=== PATIENT | female | born 1955 | race Caucasian/White ===

== ENCOUNTER 2017-03-12 07:03 | Emergency (ER) | payer BC, OTHER ==
[2017-03-12] MEDS ORDERED: NORMAL SALINE 1000 ML 1,000 ML IV ONE ×2 (07:57→11:28)
[2017-03-12] MEDS ORDERED: ONDANSETRON HCL INJ/PF 4 MG/2 ML SDV IV ONE (07:57)
[2017-03-12] MEDS ORDERED: MORPHINE SULFATE 10 MG/ML INJ IV ONE ×2 (07:57→11:29)
--- NOTE | 2017-03-12 09:31 | RADIOLOGY REPORT (SQ) ---
EXAM DESCRIPTION: CT ABD/PELVIS NO ORAL OR IV COMPLETED DATE/TIME: 03/12/2017 9:15 am REASON FOR STUDY: recent iliostomy 3 weeks ago, flank pain, rlq pain COMPARISON: None. TECHNIQUE: CT scan of the abdomen and pelvis performed without intravenous or oral contrast. Images reviewed with lung, soft tissue, and bone windows. Reconstructed coronal and sagittal MPR images revi ewed. All images stored on PACS. All CT scanners at this facility use dose modulation, iterative reconstruction, and/or weight based d osing when appropriate to reduce radiation dose to as low as reasonably achievable (ALARA). [facility]: Dose Right [facility]: CareDose [facility]: Dose Right [facility]: Teradose 4D [facility]: Smart Contatta RADIATION DOSE: Up-to-date CT equipment and radiation dose reduction techniques were employed. CTDIv ol: 4.9 mGy. DLP: 245 mGy-cm.mGy. LIMITATIONS: None. FINDINGS: LOWER CHEST: No significant findings. No nodules or infiltrates. Partially visualized lef t breast implant. NON-CONTRASTED LIVER, SPLEEN, ADRENALS: Evaluation limited by lack of IV contrast. No identified sign ificant masses. PANCREAS: No masses. No peripancreatic inflammatory changes. GALLBLADDER: Surgically absent. RIGHT KIDNEY AND URETER: No suspicious masses. Assessment limited by lack of IV contrast. Double-J ureteral stents noted within the collecting system. Significant persistent hydronephrosis. LEFT KIDNEY AND URETER: No suspicious masses. Assessment limited by lack of IV contrast. No signifi cant calcifications. Significant left-sided hydronephrosis. AORTA AND RETROPERITONEUM: No aneurysm. No retroperitoneal masses or adenopathy. BOWEL AND PERITONEAL CAVITY: Right lower quadrant ostomy noted. Surgical clips noted within the mese nteries. No adenopathy. No mass lesions. No intra-abdominal free air. No fluid collections or asc ites. APPENDIX: Not visualized. PELVIS, BLADDER, AND ABDOMINAL WALL:Double-J stent noted within the bladder from the right. No pelvi c mass lesions. No pelvic adenopathy. Postsurgical changes from midline incision noted. No abdomin al mass lesions. No hernia. BONES: No significant findings. OTHER: No other significant finding. IMPRESSION: 1. Significant bilateral hydronephrosis. Right double-J ureteral stent in place. The stents identified on the left. No renal calculi identified. 2. Right lower quadrant ostomy. No evidence of bowel obstruction. No intra-abdominal free air. No intra bowel fluid collections or ascites. TECHNICAL DOCUMENTATION: JOB ID: [id number] Quality ID # [id number]: Final reports with documentation of one or more dose reduction techniques (e.g., Au tomated exposure control, adjustment of the mA and/or kV according to patient size, use of iterative reconstruction technique) 2010 [employer]- All Rights Reserved
--- NOTE | 2017-03-12 09:36 | ER Document Report ---
ED GI/ - General Chief Complaint: Pelvic Pain Stated Complaint: SIDE PAIN Time Seen by Provider: 03/12/17 07:19 Mode of Arrival: Ambulatory Information source: Patient Notes: Patient is a 61-year-old female with history of breast cancer who presents to the ER today for right flank pain radiating around to the right lower abdomen. Patient had an ileostomy placed 3 weeks ago due to mass in her small intestine. Patient states that they had to bypass the mass, cannot remove it because it was "too intertwined." She is not on chemo or radiation at this time. She denies any history of kidney stones. She admits to some nausea but no vomiting with this pain that began last night and has been constant since. 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 She denies any dysuria, hematuria, fever , chills, abnormal vaginal discharge. TRAVEL OUTSIDE OF THE [place] IN LAST 30 DAYS: No - Related Data Allergies/Adverse Reactions: acetaminophen [From Percocet] Allergy (Verified 03/12/17 07:57) oxycodone [From Percocet] Allergy (Verified 03/12/17 07:57) promethazine [From Phenergan] Allergy (Verified 03/12/17 07:57) Past Medical History - General Information source: Patient - Social History Smoking Status: Unknown if Ever Smoked Chew tobacco use (# tins/day): No Frequency of alcohol use: None Drug Abuse: None Family History: Reviewed & Not Pertinent Renal/ Medical History: Denies: Hx Peritoneal Dialysis Past Surgical History: Reports: Hx Abdominal Surgery - ostomy, Hx Breast Surgery , Hx Mastectomy Review of Systems - Review of Systems Constitutional: No symptoms reported EENT: No symptoms reported Cardiovascular: No symptoms reported Respiratory: No symptoms reported Gastrointestinal: See HPI Genitourinary: See HPI Female Genitourinary: No symptoms reported Musculoskeletal: No symptoms reported Skin: No symptoms reported Hematologic/Lymphatic: No symptoms reported Neurological/Psychological: No symptoms reported Physical Exam - Vital signs Vitals: Temp Pulse Resp BP Pulse Ox 97.6 F 86 14 144/84 H 99 03/12/17 07:05 03/12/17 07:05 03/12/17 07:05 03/12/17 07:05 03/12/17 07:05 - Notes Notes: PHYSICAL EXAMINATION: GENERAL: Obviously in pain, and position hunched over on bed, in mild acute distress. HEAD: Atraumatic, normocephalic. EYES: Pupils equal round and reactive to light, extraocular movements intact, sclera anicteric, conjunctiva are normal. NECK: Normal range of motion, supple without lymphadenopathy LUNGS: CTAB and equal. No wheezes rales or rhonchi. HEART: Regular rate and rhythm without murmurs ABDOMEN: iliostomy in place, looks well, stool in bag, no bleeding, stoma looks well, Soft, RLQ, right sided, tenderness. No guarding, no rebound BACK: no vertebral tenderness, normal ROM GI/: right CVA tenderness EXTREMITIES: Normal range of motion, no pitting edema. No cyanosis. NEUROLOGICAL: Cranial nerves grossly intact. Normal sensory/motor exams. PSYCH: Normal mood, normal affect. SKIN: Warm, Dry, normal turgor, no rashes or lesions noted Course - Re-evaluation Re-evalutation: 03/12/17 11:[address] Smith, oncologist [facility] who states her last ultrasound of kidneys 2 weeks ago reports only moderate left hydronephrosis and her creatinine was 1.75. Today her creatinine is 3.05, and she has significant bilateral hydronephrosis. I have now placed a call for her urologist and is awaiting callback. CT reports no acute pathology. 03/12/17 12:34 Oncologist, Dr. Smith fellow patient to her service at this time for acute renal failure with a consult to urology, the attending, accepting physician is Dr. Jazmyn Kurtz and patient will go to ED to ED. 03/12/17 13:05 pt stable for transfer, no complaints. transport here. - Vital Signs Vital signs: Temp Pulse Resp BP Pulse Ox 98.6 F 79 16 150/85 H 99 03/12/17 12:48 03/12/17 12:48 03/12/17 12:48 03/12/17 12:48 03/12/17 12:48 - Laboratory Result Diagrams: 03/12/17 09:32 03/12/17 09:32 Laboratory results interpreted by me: 03/12/17 03/12/17 09:32 09:32 RBC 3.12 L Hgb 9.6 L Hct 27.7 L Plt Count 488 H Chloride 108 H Carbon Dioxide 17 L BUN 35 H Creatinine 3.05 H Est GFR ( Amer) 19 L Est GFR (Non-Af Amer) 16 L ALT 70 H Alkaline Phosphatase 254 H Albumin 3.3 L Discharge - Discharge Clinical Impression: Acute renal failure Qualifiers: Acute renal failure type: unspecified Qualified Code(s): N17.9 - Acute kidney failure, unspecified Hydronephrosis Qualifiers: Hydronephrosis type: with other ureteral stricture Qualified Code(s): N13.1 - Hydronephrosis with ureteral stricture, not elsewhere classified Condition: Stable Disposition: [facility]
[2017-03-12 09:41] LABS: ABSOLUTE BASOPHILS # (AUTO) 0.1 10^3/uL (0.0-0.2); ABSOLUTE EOSINOPHILS # (AUTO) 0.1 10^3/uL (0.0-0.6); ABSOLUTE LYMPHOCYTES (AUTO) 1.4 10^3/uL (0.5-4.7); ABSOLUTE MONOCYTES (AUTO) 0.7 10^3/uL (0.1-1.4); ABSOLUTE NEUT (AUTO) 5.6 10^3/uL (1.7-8.2); BASOPHILS % (AUTO) 0.7 % (0-2); HEMATOCRIT 27.7 % (36.0-47.0); HEMOGLOBIN 9.6 g/dL (12.0-15.5); HGB HCT DIFFERENCE 1.1; LYMPHOCYTES % (AUTO) 17.8 % (13-45); MEAN CORPUSCULAR HEMOGLOBIN 30.9 pg (27.0-33.4); MEAN CORPUSCULAR HGB CONC 34.8 g/dL (32.0-36.0); MEAN CORPUSCULAR VOLUME 89 fl (80-97); MONOCYTES % (AUTO) 8.4 % (3-13); RED BLOOD COUNT 3.12 10^6/uL (3.72-5.28); RED CELL DISTRIBUTION WIDTH 12.5 % (11.5-14.0); SEGMENTED NEUTROPHILS % (AUTO) 72.1 % (42-78); WHITE BLOOD COUNT 7.8 10^3/uL (4.0-10.5)
[2017-03-12 10:05] LABS: ALANINE AMINOTRANSFERASE 70 U/L (9-52); ALBUMIN 3.3 g/dL (3.5-5.0); ALKALINE PHOSPHATASE 254 U/L (38-126); ANION GAP 13 (5-19); ASPARTATE AMINO TRANSFERASE 33 U/L (14-36); BILIRUBIN,DIRECT 0.4 mg/dL (0.0-0.4); BILIRUBIN,TOTAL 0.7 mg/dL (0.2-1.3); BLOOD UREA NITROGEN 35 mg/dL (7-20); CALCIUM 9.7 mg/dL (8.4-10.2); CARBON DIOXIDE 17 mmol/L (22-30); CHLORIDE 108 mmol/L (98-107); CREATININE RESULT 3.05 mg/dL (0.52-1.25); GLUCOSE 99 mg/dL (75-110); LIPASE 158.8 U/L (23-300); POTASSIUM 4.1 mmol/L (3.6-5.0); SODIUM 138.2 mmol/L (137-145); TOTAL PROTEIN 6.4 g/dL (6.3-8.2)
[2017-03-12 12:49] VITALS: BP 150/85
== END 2017-03-12 13:10 | disposition short-term general hospital (02) ==
LOC: ER 07:03
DX: N17.9 Acute kidney failure, unspecified (principal); N13.1 Hydronephrosis with ureteral stricture, not elsewhere classified; R19.09 Other intra-abdominal and pelvic swelling, mass and lump; Z93.2 Ileostomy status; R11.0 Nausea; Z92.3 Personal history of irradiation; Z88.5 Allergy status to narcotic agent; Z88.6 Allergy status to analgesic agent; Z88.8 Allergy status to other drugs, medicaments and biological substances
CPT/HCPCS: 96376; 99285; 96361; 51701; 96374; 96375; 36415; 83690; 85025; 80053; 74176; J2270; J2405; J7030

== ENCOUNTER 2017-04-18 18:27 | Emergency (ER) | payer BC ==
[2017-04-18] MEDS ORDERED: FAMOTIDINE INJ/PF 20 MG/2 ML SDV IV ONE (18:31)
[2017-04-18] MEDS ORDERED: METOCLOPRAMIDE HCL INJ/PF 10 MG/2 ML SDV IV ONE (18:31)
[2017-04-18] MEDS ORDERED: NORMAL SALINE 1000 ML 1,000 ML IV PRN ×2 (18:31→19:21)
--- NOTE | 2017-04-18 18:45 | ER Document Report ---
ED GI/ - General Chief Complaint: Nausea Stated Complaint: NAUSEA,VOMITING Time Seen by Provider: 04/18/17 18:31 Mode of Arrival: Stretcher Information source: Patient, Emergency Med Personnel TRAVEL OUTSIDE OF THE [place] IN LAST 30 DAYS: No - HPI Patient complains to provider of: Vomiting Onset: Other - 3 days Timing/Duration: Persistent Quality of pain: Achy Severity at maximum: Mild Severity in ED: Mild Associated symptoms: Nausea, Vomiting Exacerbated by: Food Relieved by: Denies Similar symptoms previously: Yes Recently seen / treated by doctor: Yes Notes: 04/18/17 23:05 Patient is a 61-year-old female with a history of metastatic breast cancer, who presents to the emergency room today complaining of nausea and vomiting with decreased p.o. intake over the past 3 days, she was recently seen at a tertiary care center and had nephrostomy tubes placed, also has colostomy, she recently started a new course of chemotherapy which she reports is likely the cause of her symptoms today, she reports some crampy lower abdominal pain, no fever, she does have generalized weakness - Related Data Allergies/Adverse Reactions: acetaminophen [From Percocet] Allergy (Verified 04/18/17 19:00) oxycodone [From Percocet] Allergy (Verified 04/18/17 19:00) promethazine [From Phenergan] Allergy (Verified 04/18/17 19:00) Home Medications: Current Home Medications Capecitabine [Capecitabine] 1,500 mg PO BID 04/18/17 [History] Citalopram Hydrobromide [Citalopram HBr] 40 mg PO DAILY 04/18/17 [History] Fentanyl [Fentanyl] 25 mcg TD Q72HP 04/18/17 [History] Lorazepam [Lorazepam] 0.5 mg PO Q4H PRN 04/18/17 [History] Ondansetron [Zuplenz] 8 mg PO Q8H 04/18/17 [History] Oxycodone HCl [Oxycodone HCl] 10 mg PO Q4H 04/18/17 [History] Past Medical History - General Information source: Patient - Social History Smoking Status: Unknown if Ever Smoked Family History: Reviewed & Not Pertinent Renal/ Medical History: Denies: Hx Peritoneal Dialysis Past Surgical History: Reports: Hx Abdominal Surgery - ostomy, Hx Breast Surgery , Hx Mastectomy Review of Systems - Review of Systems Constitutional: Malaise, Weakness EENT: No symptoms reported Cardiovascular: No symptoms reported Respiratory: No symptoms reported Gastrointestinal: See HPI Genitourinary: No symptoms reported Female Genitourinary: No symptoms reported Musculoskeletal: No symptoms reported Skin: No symptoms reported Hematologic/Lymphatic: No symptoms reported Neurological/Psychological: No symptoms reported -: Yes All other systems reviewed and negative Physical Exam - Vital signs Vitals: Temp Pulse Resp BP Pulse Ox 99 F 127 H 18 136/72 H 99 04/18/17 18:30 04/18/17 18:30 04/18/17 18:30 04/18/17 18:30 04/18/17 18:30 Interpretation: Tachycardic - General General appearance: Alert In distress: None - Appears uncomfortable, actively vomiting - HEENT Head: Normocephalic, Atraumatic Eyes: Normal Conjunctiva: Normal Extraocular movements intact: Yes Eyelashes: Normal Pupils: PERRL - Respiratory Respiratory status: No respiratory distress Chest status: Nontender Breath sounds: Normal Chest palpation: Normal - Cardiovascular Rhythm: Regular, Tachycardia - Abdominal Inspection: Other - Colostomy in place Distension: No distension Bowel sounds: Normal Tenderness: Tender - Mild lower abdominal tenderness Organomegaly: No organomegaly - Back Back: Normal - Extremities General upper extremity: Normal inspection General lower extremity: Normal inspection - Neurological Neuro grossly intact: Yes Cognition: Normal Orientation: AAOx4 Neal Coma Scale Eye Opening: Spontaneous [place] Coma Scale Verbal: Oriented [place] Coma Scale Motor: Obeys Commands [place] Coma Scale Total: 15 - Psychological Associated symptoms: Normal affect, Normal mood - Skin Skin Temperature: Warm Skin Moisture: Dry Skin Color: Normal Course - Re-evaluation Re-evalutation: 04/18/17 23:07 Patient resting comfortably, reports feeling much better, was able to tolerate crackers and water, vital signs are significantly improved, she is noted to have urinalysis consistent with a urinary tract infection, was started on antibiotics for this, provided with several antinausea medications by prescription, advised to follow-up with her primary care provider and her oncologist in the next 1-2 days or return if symptoms worsen, patient acknowledges understanding and agreement with this plan - Vital Signs Vital signs: Temp Pulse Resp BP Pulse Ox 99 F 127 H 19 87/63 L 99 04/18/17 18:30 04/18/17 18:30 04/18/17 22:32 04/18/17 22:30 04/18/17 22:32 - Laboratory Result Diagrams: 04/18/17 18:35 04/18/17 18:35 Laboratory results interpreted by me: 04/18/17 04/18/17 04/18/17 18:35 18:35 20:37 RBC 3.52 L Hgb 11.0 L Hct 31.6 L RDW 14.1 H Chloride 97 L BUN 36 H Creatinine 1.45 H Est GFR ( Amer) 45 L Est GFR (Non-Af Amer) 37 L Glucose 118 H Alkaline Phosphatase 127 H Urine Protein 100 H Urine Blood LARGE H Ur Leukocyte Esterase LARGE H Discharge - Discharge Clinical Impression: Nausea & vomiting Qualifiers: Vomiting type: unspecified Vomiting Intractability: non-intractable Qualified Code(s): R11.2 - Nausea with vomiting, unspecified Urinary tract infection Qualifiers: Urinary tract infection type: site unspecified Hematuria presence: with hematuria Qualified Code(s): N39.0 - Urinary tract infection, site not specified ; R31.9 - Hematuria, unspecified Condition: Stable Disposition: HOME, SELF-CARE Instructions: Antinausea Medication ([facility]), Intravenous (IV) Fluids ([facility]), Vomiting ([facility]), Urinary Tract Infection ([facility]) Additional Instructions: Follow up with your primary care provider in one to 2 days. Return to the emergency room immediately if symptoms worsen or any additional concerns. Prescriptions: Cephalexin Monohydrate [Keflex 500 mg Capsule] 500 mg PO BID #20 capsule Metoclopramide HCl [Reglan 10 mg Tablet] 1 - 2 tab PO ASDIR PRN #25 tablet PRN Reason: Prochlorperazine Maleate [Compazine 10 mg Tablet] 10 mg PO ASDIR PRN #30 tablet PRN Reason: Prochlorperazine Maleate [Compazine 25 Mg Supp.Rect] 25 mg TN TID #30 supp.rect Referrals: ARCADIO BHAKTA MD [Primary Care Provider] - Follow up as needed
[2017-04-18 19:04] LABS: ABSOLUTE LYMPHOCYTES (AUTO) 2.1 10^3/uL (0.5-4.7); ABSOLUTE MONOCYTES (AUTO) 0.6 10^3/uL (0.1-1.4); ABSOLUTE NEUT (AUTO) 3.5 10^3/uL (1.7-8.2); BASOPHILS % (AUTO) 0.4 % (0-2); HEMATOCRIT 31.6 % (36.0-47.0); HGB HCT DIFFERENCE 1.4; MEAN CORPUSCULAR HEMOGLOBIN 31.4 pg (27.0-33.4); MEAN CORPUSCULAR VOLUME 90 fl (80-97); MONOCYTES % (AUTO) 10.3 % (3-13); RED BLOOD COUNT 3.52 10^6/uL (3.72-5.28); RED CELL DISTRIBUTION WIDTH 14.1 % (11.5-14.0); SEGMENTED NEUTROPHILS % (AUTO) 55.3 % (42-78); WHITE BLOOD COUNT 6.3 10^3/uL (4.0-10.5)
[2017-04-18] MEDS ORDERED: ONDANSETRON HCL INJ/PF 4 MG/2 ML SDV IV ONE (19:21)
[2017-04-18 19:26] LABS: ALANINE AMINOTRANSFERASE 47 U/L (9-52); ALBUMIN 4.2 g/dL (3.5-5.0); ALKALINE PHOSPHATASE 127 U/L (38-126); ANION GAP 17 (5-19); ASPARTATE AMINO TRANSFERASE 32 U/L (14-36); BILIRUBIN,DIRECT 0.4 mg/dL (0.0-0.4); BILIRUBIN,TOTAL 0.9 mg/dL (0.2-1.3); BLOOD UREA NITROGEN 36 mg/dL (7-20); CALCIUM 9.6 mg/dL (8.4-10.2); CARBON DIOXIDE 23 mmol/L (22-30); CHLORIDE 97 mmol/L (98-107); CREATININE RESULT 1.45 mg/dL (0.52-1.25); GLUCOSE 118 mg/dL (75-110); LIPASE 38.6 U/L (23-300); POTASSIUM 3.6 mmol/L (3.6-5.0); SODIUM 137.3 mmol/L (137-145); TOTAL PROTEIN 7.3 g/dL (6.3-8.2)
[2017-04-18] MEDS ORDERED: DIAZEPAM INJ 10 MG/2 ML DISP.SYRIN IV ONE (20:29)
[2017-04-18 21:18] LABS: APPEARANCE,URINE CLOUDY; BILIRUBIN,URINE NEGATIVE (NEGATIVE); GLUCOSE, URINE NEGATIVE (NEGATIVE); KETONES,URINE NEGATIVE (NEGATIVE); LEUKOCYTE ESTERASE,URINE LARGE (NEGATIVE); NITRITE,URINE NEGATIVE (NEGATIVE); PROTEIN,URINE 100 mg/dL (NEGATIVE); URINE SPECIFIC GRAVITY 1.011; UROBILINOGEN,URINE NEGATIVE mg/dL (<2.0)
[2017-04-18] MEDS ORDERED: PROCHLORPERAZINE MALEATE 10 MG TABLET PO ONE (22:02)
[2017-04-18] MEDS ORDERED: METOCLOPRAMIDE HCL 10 MG TABLET PO ONE (22:02)
[2017-04-18] MEDS ORDERED: PROCHLORPERAZINE MALEATE 25 MG SUPP.RECT PR ONE (22:02)
[2017-04-18] MEDS ORDERED: CEFTRIAXONE INJ 1000 MG VIAL IV ONE (23:04)
[2017-04-19 01:06] VITALS: BP 101/72
== END 2017-04-19 01:13 | disposition home or self-care (01) ==
LOC: ER 18:27
DX: N39.0 Urinary tract infection, site not specified (principal); R11.2 Nausea with vomiting, unspecified; Z85.3 Personal history of malignant neoplasm of breast; R10.30 Lower abdominal pain, unspecified; R53.1 Weakness; Z79.899 Other long term (current) drug therapy
CPT/HCPCS: 99284; 96361; 96375; 96365; 36415; 87086; 83690; 85025; 80053; 81001; J3360; J2765; S0183; J0696; J2405; J7030; S0028; J3490